=== PATIENT | female | born 1970 | race Caucasian/White ===

== ENCOUNTER → 2023-12-22 09:46 | Outpatient (REF) | payer OTHER, SELFPAY | LOC: RAD 09:46 | PROVIDERS: ATTENDING PHYSICIAN Obstetrics & Gynecology Gynecology; FAMILY PHYSICIAN Nurse Practitioner Family | DX: N83.209 Unspecified ovarian cyst, unspecified side (principal) | CPT/HCPCS: 76830; 76856 ==

== ENCOUNTER → 2025-03-14 13:12 | Outpatient (REF) | payer OTHER, SELFPAY | LOC: HWRAD 13:12 | PROVIDERS: ATTENDING PHYSICIAN Obstetrics & Gynecology Gynecology; FAMILY PHYSICIAN Nurse Practitioner Family | DX: N83.209 Unspecified ovarian cyst, unspecified side (principal); Z98.890 Other specified postprocedural states | CPT/HCPCS: 76830; 76856 ==

== ENCOUNTER → 2025-05-15 13:59 | Outpatient (REF) | payer OTHER, SELFPAY | LOC: RAD 13:59 | PROVIDERS: ATTENDING PHYSICIAN Nurse Practitioner Family | DX: N95.1 Menopausal and female climacteric states (principal) | CPT/HCPCS: 77080 ==